=== PATIENT | female | born 1935 | race Caucasian/White ===

== ENCOUNTER → 2018-10-23 10:43 | Outpatient (CLI) | payer OTHER, SELFPAY | DX: R35.0 Frequency of micturition (principal) | CPT/HCPCS: 87077; 87086; 87186 ==

== ENCOUNTER → 2018-12-21 14:24 | Outpatient (CLI) | payer OTHER, SELFPAY | DX: R30.0 Dysuria (principal) | CPT/HCPCS: 87077; 87086; 87186 ==

== ENCOUNTER → 2019-01-02 10:51 | Outpatient (CLI) | payer OTHER, SELFPAY ==
[2019-01-02 11:01] LABS: RBC Urine None Seen (0-5/HPF)
[2019-01-02 11:54] LABS: Appearance Urine UA CLEAR; Bilirubin Urine UA NEGATIVE (NEGATIVE); Color Urine UA YELLOW; Glucose Urine UA NEGATIVE (Negative); Ketones Urine UA NEGATIVE (NEGATIVE); Leukocyte Esterase Urine UA TRACE (NEGATIVE); Nitrite Urine UA NEGATIVE (Negative); Occult Blood Urine UA NEGATIVE (Negative); Protein Urine UA NEGATIVE (Negative); Urobilinogen Urine UA 0.2 E.U./dL (0.2)
[2019-01-02 12:33] LABS: Bacteria Urine Occasional (0-1); Culture Indicated Urine Specimen Cultured; WBC Urine 0-1/HPF (0-5/HPF)
== END ==
DX: R30.0 Dysuria (principal); R35.0 Frequency of micturition
CPT/HCPCS: 81001; 87086

== ENCOUNTER → 2019-06-28 14:02 | Outpatient (CLI) | payer OTHER, SELFPAY ==
--- NOTE | 2019-06-28 | DI.US.S_ITS ---
PROCEDURE: US PELVIC COMPLETE INDICATIONS: FEMALE GENITAL PROLAPSE TECHNIQUE: Real-time scanning was performed of the pelvic organs, with image documentation. Additional endovaginal scanning was necessary due to incomplete visualization of the adnexal and endometrial structures by transabdominal scanning. COMPARISON: None. FINDINGS: Transabdominal scanning: Limited scanning through the kidneys shows no hydronephrosis. Incidental note is made of a 2.5 cm right renal cyst. No pathologic free abdominal or pelvic fluid. There is a postvoid residual of 72 cc. Endovaginal scanning: Uterus: Uterus is normal in size at 5 x 3.3 x 2.3 cm. The endometrium measures 3 mm in combined thickness. The uterus demonstrates a heterogeneous appearance, several subcentimeter thyroid seen. 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 Ovaries: The right ovary measures 1.7 x 1.3 x 1.2 cm. The left ovary measures 2.2 x 2.2 x 1.2 cm. The ovaries have a normal sonographic appearance. No adnexal masses are seen. IMPRESSION: Heterogeneous uterus with subcentimeter fibroids. Moderate postvoid residual, 72 cc. Dictated by: Issac Carvajal M.D. on 06/28/2019 at 16:48 Approved by: Issca Carvajal M.D. on 06/28/2019 at 16:49
== END ==
PROVIDERS: Visit Provider Urology
DX: N81.9 Female genital prolapse, unspecified (principal); D25.9 Leiomyoma of uterus, unspecified; N28.1 Cyst of kidney, acquired
CPT/HCPCS: 76856